=== PATIENT | female | born 1970 | race Caucasian/White ===

== ENCOUNTER → 2023-10-10 | Outpatient (CLI) | payer BC ==
--- NOTE | 2023-10-10 11:13 | CTL ---
EXAMINATION TYPE: CT Low Dose Lung DATE OF EXAM ORDERED: 10/10/2023 HISTORY: 53-year-old female former smoker, 30 pack-year history. Lung cancer screening CT DLP: 152.[address] CTDI: 4.3 mGy Automated exposure control for dose reduction was used. SCREENING VISIT: Baseline COMPARISON: None TECHNIQUE: Low dose computed tomography scan was performed through the chest with coronal and sagitta l reconstructions. CT DIAGNOSTIC QUALITY: Satisfactory FINDINGS: The heart is normal size without pericardial effusion. Borderline ectasia aortic root at 3.6 cm. Bovine configuration to the aortic arch. No thoracic lymphadenopathy by CT size criteria. Some strandy atelectasis in the lower lungs. Mild diffuse bronchial wall thickening. Mild emphysemato us change. Minimal biapical pleural parenchymal scarring. No consolidation or pleural effusion. * Tiny 3 mm anteromedial right upper lobe pulmonary nodule, axial image 85. * No suspicious pulmonary nodules seen. Tiny hiatal hernia. Visualized upper abdomen shows mild hepatic steatosis. Bones: No acute processes. IMPRESSION: 1. LungRADS 2, benign. A solitary tiny 3 mm pulmonary nodule on baseline screening. 2. COPD with mild emphysema. CT LUNG RAD AND CT CHEST RECOMMENDATION: Lung-Rad 2 Benign Appearance or Behavior: Continue annual sc reening with LDCT in 12 months. S Modifier (other clinically significant findings): None
== END | disposition home or self-care (01) ==
LOC: RADCTMAIN 07:55
PROVIDERS: ATTEND Family Medicine
DX: Z12.2 Encounter for screening for malignant neoplasm of respiratory organs (principal); J44.9 Chronic obstructive pulmonary disease, unspecified; J43.9 Emphysema, unspecified; Z87.891 Personal history of nicotine dependence
CPT/HCPCS: 71271